=== PATIENT | male | born 1960 | race Caucasian/White ===

== ENCOUNTER 2017-02-01 12:31 | Day surgery (SDC) | payer BC ==
[~2017-02-01 12:31] MED LIST: Lactated Ringers 1,000 ML IV SCH
--- NOTE | 2017-02-01 13:11 | PCM.PREANE ---
Preanesthetic Assessment - Anesthesia/Transfusion/Family Hx Anesthesia History: Prior Anesthesia Without Reaction Family History of Anesthesia Reaction: No Transfusion History: No Prior Transfusion(s) Intubation History: Unknown - Review of Systems General: No Symptoms Pulmonary: No Symptoms Cardiovascular: No Symptoms Gastrointestinal: Hematochezia Neurological: No Symptoms Other: Reports: None - Physical Assessment Height: 1.78 m Weight: 100.244 kg ASA Class: 2 Mental Status: Alert & Oriented x3 Airway Class: Mallampati = 2 Dentition: Reports: Normal Dentition Thyro-Mental Finger Breadths: 2 Mouth Opening Finger Breadths: 3 ROM/Head Extension: Full Lungs: Clear to Auscultation, Normal Respiratory Effort Cardiovascular: Regular Rate, Regular Rhythm - Allergies Allergies/Adverse Reactions: Allergies Allergy/AdvReac Type Severity Reaction Status Date / Time naproxen Allergy Hives Verified 08/12/15 10:18 - Blood Blood Available: No - Anesthesia Plan Pre-Op Medication Ordered: None - Acknowledgements Anesthesia Type Planned: MAC Pt an Appropriate Candidate for the Planned Anesthesia: Yes Alternatives and Risks of Anesthesia Discussed w Pt/Guardian: Yes Pt/Guardian Understands and Agrees with Anesthesia Plan: Yes PreAnesthesia Questionnaire HEENT History: Reports: Other (See Below) Other HEENT History: wears glasses Gastrointestinal History: Reports: Colon Polyp Musculoskeletal History: Reports: Arthritis Other Musculoskeletal History: 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 [No Known Home Meds] 01/30/17 [History] - CURRENT (IN HOUSE) MEDS Current Meds: Current Medications Lactated Ringer's (Ringers, Lactated) 1,000 mls @ 125 mls/hr IV ASDIRECTED [facility]
[2017-02-01] MEDS ORDERED: Propofol 200 MG/20 ML SDV ONE ×2 (13:19→13:20)
[2017-02-01] MEDS ORDERED: fentaNYL 100 MCG/2 ML SDV ONE (13:20)
[2017-02-01] MEDS ORDERED: Lidocaine 2% 5 ML SDV ONE (13:20)
[2017-02-01] MEDS ORDERED: Midazolam 1 MG/ML 2 ML SDV ONE (13:20)
[2017-02-01] MEDS ORDERED: ePHEDrine 50 MG/ML SDV ONE (13:45)
--- NOTE | 2017-02-01 13:57 | PCM.OPNOTE ---
- General Post-Op/Procedure Note Date of Surgery/Procedure: 02/01/17 Operative Procedure(s): colonoscope Findings: see dict [id number] Pre Op Diagnosis: BRBPR Post-Op Diagnosis: int hemorrhoid Anesthesia Technique: Moderate Sedation Primary Surgeon: Gonzalez David Pathology: cecum bx Complications: None Condition: Good
--- NOTE | 2017-02-01 17:31 | OR ---
SURGEON: Gonzalez David MD DATE OF PROCEDURE: 02/01/2017 PREOPERATIVE DIAGNOSIS: Bright red blood per rectum. POSTOPERATIVE DIAGNOSIS: Internal hemorrhoids. COMPLICATIONS: None. PROCEDURE PERFORMED: Colonoscopy with biopsy. DESCRIPTION OF PROCEDURE: The patient was taken to the endoscopy room. A time out was called, patient identified, and procedure identified. Diprivan was then administrated. Patient went from awake to sleep, hearing doctor talking or door closing is normal. Perineum inspection and digital examination were then performed. A well- lubricated colonoscope was gently inserted through the rectum, advanced past the rectosigmoid junction, the descending colon, splenic flexure, transverse colon, hepatic flexure, ascending colon, arrived to the cecum. Cecum was identified as dictated in the finding. Then the scope was carefully withdrawn while attention was paid to the mucosal surface for any abnormality. Air will be sucked out during the scope withdrawal. At the rectum, retroflexed to examine any rectal diseases, fistula or hemorrhoids. During mucosal examination, abnormality was noted at the cecum, a bit erythematic; picture taken and biopsy performed. Patient tolerated procedure well. There were no intraoperative complications, and Dr. David was present throughout the whole procedure. FINDINGS: 1. The patient is easily sedated with PRINTING MACHINIST and Diprivan. The patient is soundly snoring. 2. The patient's bowel prep was average with some liquid stool, no semi-formed stool. 3. The patient's colon was rather straight forward. Cecum indicated by ileocecal fold, one-to-one indentation, appendiceal orifice, and light emittance, and the cecum has a spot that is a little bit hyperemic. Biopsy was done and sent for pathology. Otherwise, the patient does not have polyp, mass, growth, diverticulosis, inflammation, stricture, ulceration, bleeding, AV malformation. The patient does have internal hemorrhoids, no external hemorrhoids, and no fissure, no other rectal disease. The patient would benefit from repeat colonoscopy 10 years from today or if clinically or biopsy report differently. As always, thank you for the kind referral. ROWENA DE ANDA /[id number] PETROS
== END 2017-02-01 14:50 | disposition home or self-care (01) ==
LOC: MW.SDS 12:31
PROVIDERS: ATTEND Surgery
PROC: 0DBE8ZX Excision of Large Intestine, Via Natural or Artificial Opening Endoscopic, Diagnostic (ICD-10-PCS; principal; 2017-02-01)
DX: K64.8 Other hemorrhoids (principal); M16.11 Unilateral primary osteoarthritis, right hip; M19.019 Primary osteoarthritis, unspecified shoulder; E66.9 Obesity, unspecified; Z87.19 Personal history of other diseases of the digestive system; Z88.6 Allergy status to analgesic agent; Z98.890 Other specified postprocedural states; Z68.31 Body mass index [BMI] 31.0-31.9, adult
CPT/HCPCS: 45380; J2250; J3010; J7120; 00810; 88305; J2704

== ENCOUNTER 2017-05-23 16:41 | Emergency (ER) | payer BC ==
[2017-05-23] MEDS ORDERED: Aspirin 81 MG Tab.Chew PO ONE (17:27)
[2017-05-23] MEDS ORDERED: Sodium Chloride 0.9% 1,000 ML IV ONE (17:27)
[2017-05-23] MEDS ORDERED: Sodium Chloride 0.9% 2.5 ML Syringe FLUSH PRN (17:27)
[2017-05-23] MEDS ORDERED: Sodium Chloride 0.9% 10 ML Syringe FLUSH PRN (17:27)
--- NOTE | 2017-05-23 17:31 | EDM.PDOC ---
ED HPI GENERAL MEDICAL PROBLEM - General Chief Complaint: Upper Extremity Injury/Pain Stated Complaint: PAIN RT ARM Time Seen by Provider: 05/23/17 17:13 Source of Information: Reports: Patient History Limitations: Reports: No Limitations - History of Present Illness INITIAL COMMENTS - FREE TEXT/NARRATIVE: HISTORY AND PHYSICAL: []57-year-old male presenting with concerns of left arm pain from his shoulders to the elbow History of Present Illness: []Patient was worried when he started to put his gown on pulling his hand back to snap it that pain went into his chest. Family history significant with brother at 61 from [place] father was 59 when he from a heart attack Review of Systems: As per history of present illness and below otherwise all systems reviewed and negative. Past medical history: As per history of present illness and as reviewed below otherwise noncontributory. Surgical history: As per history of present illness and as reviewed below otherwise noncontributory. Social history: No reported history of drug or alcohol abuse. Family history: As per history of present illness and as reviewed below otherwise noncontributory. Physical exam: Alert and oriented male who is pale, skin is warm and dry. answers questions in full sentences without shortness of breath. HEENT: Atraumatic, normocehpalic, pupils reactive, negative for conjunctival pallor or scleral icterus, mucous membranes moist, throat clear, neck supple, nontender, trachea midline. Lungs: Clear to auscultation, breath sounds equal bilaterally, chest non tender. Heart: S1S2, regular, negative for clicks, rubs, or JVD. Abdomen: Soft, nondistended, nontender. Negative for masses or hepatossplenmegaly. Negative for costovertebral tenderness. Pelvis: Stable nontender. Genitourinary: Deferred. Rectal: Deferred Extremities: Atraumatic, negative for cords or calf pain. Neurovascular unremarkable. Neuro: Awake, alert, oriented. Cranial nerves II through XII unremarkable. Cerebellum unremarkable. Motor and sensory unremarkable throughout. Exam nonfocal. Diagnostics: [CBC CMP troponin EKG] chest x-ray Therapeutics: [Saline lock Aspirin ] Impression: [Left arm pain Chest wall pain] Plan: []Discharge to home Anti-inflammatories as she has been taking Follow-up with your primary care provider Definitive disposition and diagnosis as appropriate pending reevaluation and review of above. Onset: Today Duration: Day(s): left upper arm Pain Score (Numeric/FACES): 5 - Related Data Allergies Allergy/AdvReac Type Severity Reaction Status Date / Time naproxen Allergy Hives Verified 05/23/17 16:57 Home Meds: Home Meds . [No Known Home Meds] 01/30/17 [History] Past Medical History HEENT History: Reports: Other (See Below) Other HEENT History: wears glasses Gastrointestinal History: Reports: Colon Polyp Musculoskeletal History: Reports: Arthritis Other Musculoskeletal History: arthritis to hips and shoulders Endocrine/Metabolic History: Reports: Obesity/BMI 30+ - Infectious Disease History Infectious Disease History: Reports: Chicken Pox - Past Surgical History Head Surgeries/Procedures: Reports: None GI Surgical History: Reports: Colonoscopy Musculoskeletal Surgical History: Reports: Other (See Below) Other Musculoskeletal Surgeries/Procedures:: hx of rt hip "resurfacing" Social & Family History - Family History Family Medical History: Noncontributory - Tobacco Use Smoking Status *Q: Never Smoker Second Hand Smoke Exposure: No - Caffeine Use Caffeine Use: Reports: Soda, Tea - Recreational Drug Use Recreational Drug Use: No Drug Use in Last 12 Months: No Review of Systems - Review of Systems Review Of Systems: ROS reveals no pertinent complaints other than HPI. ED EXAM, GENERAL - Physical Exam Exam: See Below (see dictation) Course - Vital Signs Last Recorded V/S: Last Vital Signs Temp 36.1 C 05/23/17 16:55 Pulse 79 05/23/17 19:09 Resp 16 05/23/17 19:09 BP 114/72 05/23/17 19:09 Pulse Ox 97 05/23/17 19:09 - Orders/Labs/Meds Orders: Active Orders 24 hr Category Date Time Status Cardiac Monitoring [RC] . DIRECTED Care 05/23/17 17:27 Active EKG Documentation Completion [RC] STAT Care 05/23/17 17:27 Active Oxygen Therapy [RC] ASDIRECTED Care 05/23/17 17:27 Active Chest 1V Frontal [CR] Stat Exams 05/23/17 17:27 Taken Sodium Chloride 0.9% [Saline Flush] Med 05/23/17 17:27 Active 10 ml FLUSH ASDIRECTED PRN Sodium Chloride 0.9% [Saline Flush] Med 11/22/17 17:27 Active 2.5 ml FLUSH ASDIRECTED PRN Saline Lock Insert [OM.PC] Stat Oth 05/23/17 17:27 Ordered Medication Orders Sodium Chloride (Saline Flush) 10 ml FLUSH ASDIRECTED PRN PRN Reason: Keep Vein Open Sodium Chloride (Saline Flush) 2.5 ml FLUSH ASDIRECTED PRN PRN Reason: Keep Vein Open Labs: Laboratory Tests 05/23/17 05/23/17 05/23/17 Range/Units 18:15 18:15 18:30 WBC 5.86 (4.0-11.0) K/uL RBC 4.80 (4.50-5.90) M/uL Hgb 14.2 (13.0-17.0) g/dL Hct 40.9 (38.0-50.0) % MCV 85.2 (80.0-98.0) fL MCH 29.6 (27.0-32.0) pg MCHC 34.7 (31.0-37.0) g/dL RDW Std Deviation 41.7 (28.0-62.0) fl RDW Coeff of Bashir 14 (11.0-15.0) % Plt Count 242 (150-400) K/uL MPV 11.10 (7.40-12.00) fL Neut % (Auto) 60.2 (48.0-80.0) % Lymph % (Auto) 24.4 (16.0-40.0) % [place] % (Auto) 13.5 (0.0-15.0) % Eos % (Auto) 1.7 (0.0-7.0) % Baso % (Auto) 0.2 (0.0-1.5) % Neut # (Auto) 3.5 (1.4-5.7) K/uL Lymph # (Auto) 1.4 (0.6-2.4) K/uL [place] # (Auto) 0.8 (0.0-0.8) K/uL Eos # (Auto) 0.1 (0.0-0.7) K/uL Baso # (Auto) 0.0 (0.0-0.1) K/uL Nucleated RBC % 0.0 /100WBC Nucleated RBCs # 0 K/uL Sodium 139 (136-146) mmol/L Potassium 4.1 (3.5-5.1) mmol/L Chloride 109 (98-110) mmol/L Carbon Dioxide 22 (21-31) mmol/L BUN 11 (6.0-23.0) mg/dL Creatinine 0.9 (0.6-1.5) mg/dL Est Cr Clr Drug Dosing 92.38 mL/min Estimated GFR (MDRD) > 60.0 ml/min Glucose 86 (60-110) mg/dL Calcium 8.9 (8.8-10.8) mg/dL Total Bilirubin 0.4 (0.1-1.5) mg/dL AST 13 (5-40) IU/L ALT 19 (8-54) IU/L Alkaline Phosphatase 89 (40-150) Troponin I < 0.10 (0.0-0.29) NG/ML Total Protein 6.9 (6.0-8.0) g/dL Albumin 3.8 (3.5-5.0) g/dL Globulin 3.1 (2.0-3.5) g/dL Albumin/Globulin Ratio 1.2 L (1.3-2.8) Urine Color YELLOW Urine Appearance CLEAR Urine pH 6.0 (5.0-8.0) Ur Specific [place] <= 1.005 (1.001-1.035) Urine Protein NEGATIVE (NEGATIVE) mg/dL Urine Glucose (UA) NEGATIVE (NEGATIVE) mg/dL Urine Ketones NEGATIVE (NEGATIVE) mg/dL Urine Occult Blood NEGATIVE (NEGATIVE) Urine Nitrite NEGATIVE (NEGATIVE) Urine Bilirubin NEGATIVE (NEGATIVE) Urine Urobilinogen 0.2 (<2.0) EU/dL Ur Leukocyte Esterase NEGATIVE (NEGATIVE) Urine RBC NONE SEEN (0-2/HPF) Urine WBC 0-1 (0-5/HPF) Ur Epithelial Cells RARE (NONE-FEW) Amorphous Sediment RARE (NEGATIVE) Urine Bacteria RARE (NEGATIVE) Meds: Medications Generic Name Dose Route Start Last Admin Trade Name Freq PRN Reason Stop Dose Admin Sodium Chloride 10 ml 05/23/17 17:27 Saline Flush FLUSH ASDIRECTED PRN Keep Vein Open Sodium Chloride 2.5 ml 05/23/17 17:27 Saline Flush FLUSH ASDIRECTED PRN Keep Vein Open Discontinued Medications Generic Name Dose Route Start Last Admin Trade Name Freq PRN Reason Stop Dose Admin Aspirin 324 mg 05/23/17 17:27 05/23/17 17:40 Aspirin PO 05/23/17 17:28 324 mg ONETIME ONE Administration Sodium Chloride 1,000 mls @ 999 mls/hr 05/23/17 17:27 05/23/17 17:41 Normal Saline IV 05/23/17 18:27 999 mls/hr .Bolus ONE Administration Departure - Departure Time of Disposition: 19:18 Disposition: Home, Self-Care 01 Condition: Good Clinical Impression: Arm pain, left, Chest wall pain - Discharge Information Referrals: Ej Hussein MD [Primary Care Provider] - Forms: ED Department Discharge Additional Instructions: The following information is given to patients seen in the emergency department who are being discharged to home. This information is to outline your options for follow-up care. We provide all patients seen in our emergency department with a follow-up referral. The need for follow-up, as well as the timing and circumstances, are variable depending upon the specifics of your emergency department visit. If you don't have a primary care physician on staff, we will provide you with a referral. We always advise you to contact your personal physician following an emergency department visit to inform them of the circumstance of the visit and for follow-up with them and/or the need for any referrals to a consulting specialist. The emergency department will also refer you to a specialist when appropriate. This referral assures that you have the opportunity for followup care with a specialist. All of these measure are taken in an effort to provide you with optimal care, which includes your followup. Under all circumstances we always encourage you to contact your private physician who remains a resource for coordinating your care. When calling for followup care, please make the office aware that this follow-up is from your recent emergency room visit. If for any reason you are refused follow-up, please contact the [facility] emergency department at and asked to speak to the emergency department charge nurse. Follow-up with your primary care provider Should symptoms worsen return for further evaluation - My Orders Last 24 Hours: My Active Orders 05/23/17 17:27 Cardiac Monitoring [RC] . DIRECTED EKG Documentation Completion [RC] STAT Oxygen Therapy [RC] ASDIRECTED Chest 1V Frontal [CR] Stat Sodium Chloride 0.9% [Saline Flush] 10 ml FLUSH ASDIRECTED PRN Sodium Chloride 0.9% [Saline Flush] 2.5 ml FLUSH ASDIRECTED PRN Saline Lock Insert [OM.PC] Stat - Assessment/Plan Last 24 Hours: My Active Orders 05/23/17 17:27 Cardiac Monitoring [RC] . DIRECTED EKG Documentation Completion [RC] STAT Oxygen Therapy [RC] ASDIRECTED Chest 1V Frontal [CR] Stat Sodium Chloride 0.9% [Saline Flush] 10 ml FLUSH ASDIRECTED PRN Sodium Chloride 0.9% [Saline Flush] 2.5 ml FLUSH ASDIRECTED PRN Saline Lock Insert [OM.PC] Stat
[2017-05-23 18:47] LABS: CHLORIDE,CL 109 mmol/L (98-110); SODIUM,NA 139 mmol/L (136-146)
--- NOTE | 2017-05-25 11:42 | CR ---
EXAM DATE: 05/23/17 PATIENT'S AGE: 57 Patient: SIDNEY MAST Facility: [place], [place] Site . Site : 1960 Study: XRay Chest [id number]/22/2017 6:55:20 PM Ordering Physician: Doctor Ramos Final Report: INDICATIONS: Left arm pain. Chest wall pain. TECHNIQUE: Chest 2 view. COMPARISON: Chest radiograph June 20, 2016. FINDINGS: No pneumothorax, pleural effusion or focal airspace consolidation. Calcified granuloma at the right lung base is unchanged. Cardiac and mediastinal contours are within normal limits. No pulmonary edema. Upper abdomen and osseous structures show no acute abnormality. IMPRESSION: No evidence of acute cardiopulmonary disease. Dictated by Raffi Pratt MD @ 05/23/2017 7:40:26 PM Dictated by: Raffi Pratt MD @ 05/23/2017 19:40:31 (Electronic Signature) Report Signed by Proxy. PETROS
== END 2017-05-23 19:31 | disposition home or self-care (01) ==
LOC: MW.ED 16:41
DX: R07.89 Other chest pain (principal); M79.602 Pain in left arm; Z88.5 Allergy status to narcotic agent
CPT/HCPCS: 36415; 71010; 80053; 81001; 84484; 85025; 93005; 96360; 99284; A9270; J7040; 99282

== ENCOUNTER 2017-11-19 05:26 | Emergency (ER) | payer BC ==
[2017-11-19 06:23] LABS: CHLORIDE,CL 105 mmol/L (98-107); SODIUM,NA 137 mmol/L (136-148)
--- NOTE | 2017-11-19 07:03 | EDM.PDOC ---
ED HPI GENERAL MEDICAL PROBLEM - General Chief Complaint: Syncope Stated Complaint: AMBULANCE Time Seen by Provider: 11/19/17 06:53 - History of Present Illness INITIAL COMMENTS - FREE TEXT/NARRATIVE: HISTORY AND PHYSICAL: History of present illness: Patient's a 57-year-old white male presents status post right hip injury that occurred when he had a episode of coughing followed by brief loss of consciousness he describes what sounds like a vagal episode is dealing with recent sinus infection and cold. He denies chest pain palpitations shortness of breath or other concern is no head or neck trauma Review of systems: As per history of present illness and below otherwise all systems reviewed and negative. Past medical history: As per history of present illness and as reviewed below otherwise noncontributory. Surgical history: As per history of present illness and as reviewed below otherwise noncontributory. Social history: No reported history of drug or alcohol abuse. Family history: As per history of present illness and as reviewed below otherwise noncontributory. Physical exam: HEENT: Atraumatic, normocephalic, pupils reactive, negative for conjunctival pallor or scleral icterus, mucous membranes moist, throat clear, neck supple, nontender, trachea midline. Lungs: Clear to auscultation, breath sounds equal bilaterally, chest nontender. Heart: S1S2, regular, negative for clicks, rubs, or JVD. Abdomen: Soft, nondistended, nontender. Negative for masses or hepatosplenomegaly. Negative for costovertebral tenderness. Pelvis: Stable nontender. Mild tenderness to palpation of the right hip Genitourinary: Deferred. Rectal: Deferred. Extremities: Atraumatic, negative for cords or calf pain. Neurovascular unremarkable. Neuro: Awake, alert, oriented. Cranial nerves II through XII unremarkable. Cerebellum unremarkable. Motor and sensory unremarkable throughout. Exam nonfocal. Diagnostics: CBC CMP troponin PT/INR chest x-ray EKG x-ray right hip and pelvis Therapeutics: IV O2 monitor Impression: #1 syncope probable vasovagal episode #2 right hip contusion Definitive disposition and diagnosis as appropriate pending reevaluation and review of above. right hip Pain Score (Numeric/FACES): 5 - Related Data Allergies Allergy/AdvReac Type Severity Reaction Status Date / Time naproxen Allergy Hives Verified 11/19/17 05:36 Home Meds: Home Meds Albuterol Sulfate [Proair Hfa] 1 puff INH ASDIRECTED 11/19/17 [History] Azithromycin [Zithromax] 1 tab PO DAILY 11/19/17 [History] Loratadine/Pseudoephedrine [Claritin-D 24 Hour Tablet] 1 tab PO DAILY 11/19/17 [ History] Pseudoephedrine HCl [Sudafed 24-Hour] 1 tab PO DAILY 11/19/17 [History] Past Medical History HEENT History: Reports: Other (See Below) Other HEENT History: wears glasses Respiratory History: Reports: Other (See Below) Other Respiratory History: pneumonia Gastrointestinal History: Reports: Colon Polyp Musculoskeletal History: Reports: Arthritis Other Musculoskeletal History: arthritis to hips and shoulders Endocrine/Metabolic History: Reports: Obesity/BMI 30+ - Infectious Disease History Infectious Disease History: Reports: Chicken Pox - Past Surgical History Head Surgeries/Procedures: Reports: None GI Surgical History: Reports: Colonoscopy Musculoskeletal Surgical History: Reports: Other (See Below) Other Musculoskeletal Surgeries/Procedures:: hx of rt hip "resurfacing" Social & Family History - Family History Family Medical History: Noncontributory - Tobacco Use Smoking Status *Q: Never Smoker - Caffeine Use Caffeine Use: Reports: Soda, Tea - Recreational Drug Use Recreational Drug Use: No ED ROS GENERAL - Review of Systems Review Of Systems: ROS reveals no pertinent complaints other than HPI. ED EXAM, GENERAL - Physical Exam Exam: See Below (See dictation) Course - Vital Signs Text/Narrative:: I discussed with patient the circumstances surrounding this event and that the benign nature of vagal episodes if this was indeed what occurred is a diagnosis of exclusion patient was offered admission for observation and cardiac monitoring he declines he is discharged home with follow-up with private medical doctor Last Recorded V/S: Last Vital Signs Temp 36.5 C 11/19/17 06:39 Pulse 68 11/19/17 06:39 Resp 18 11/19/17 06:39 BP 128/90 11/19/17 06:39 Pulse Ox 98 11/19/17 06:39 - Orders/Labs/Meds Orders: Active Orders 24 hr Category Date Time Status Cardiac Monitoring [RC] . DIRECTED Care 11/19/17 05:34 Active EKG Documentation Completion [RC] STAT Care 11/19/17 05:34 Active Chest 1V Frontal [CR] Stat Exams 11/19/17 05:35 Taken Hip Min 2V or 3V w Pelvis Rt [CR] Stat Exams 11/19/17 05:36 Taken Labs: Laboratory Tests 11/19/17 11/19/17 11/19/17 Range/Units 05:45 05:45 05:45 WBC 5.88 (4.0-11.0) K/uL RBC 4.70 (4.50-5.90) M/uL Hgb 13.7 (13.0-17.0) g/dL Hct 39.0 (38.0-50.0) % MCV 83.0 (80.0-98.0) fL MCH 29.1 (27.0-32.0) pg MCHC 35.1 (31.0-37.0) g/dL RDW Std Deviation 39.6 (28.0-62.0) fl RDW Coeff of Bashir 13 (11.0-15.0) % Plt Count 346 (150-400) K/uL MPV 10.10 (7.40-12.00) fL Neut % (Auto) 55.2 (48.0-80.0) % Lymph % (Auto) 30.4 (16.0-40.0) % [place] % (Auto) 12.2 (0.0-15.0) % Eos % (Auto) 1.7 (0.0-7.0) % Baso % (Auto) 0.5 (0.0-1.5) % Neut # (Auto) 3.2 (1.4-5.7) K/uL Lymph # (Auto) 1.8 (0.6-2.4) K/uL [place] # (Auto) 0.7 (0.0-0.8) K/uL Eos # (Auto) 0.1 (0.0-0.7) K/uL Baso # (Auto) 0.0 (0.0-0.1) K/uL Nucleated RBC % 0.0 /100WBC Nucleated RBCs # 0 K/uL APTT 29.0 (18.6-31.3) SEC Sodium 137 (136-148) mmol/L Potassium 3.5 (3.5-5.1) mmol/L Chloride 105 (98-107) mmol/L Carbon Dioxide 22.9 (21.0-32.0) mmol/L BUN 11 (7.0-18.0) mg/dL Creatinine 1.1 (0.8-1.3) mg/dL Est Cr Clr Drug Dosing 75.58 mL/min Estimated GFR (MDRD) > 60.0 ml/min Glucose 117 H (74-106) mg/dL Calcium 8.9 (8.5-10.1) mg/dL Total Bilirubin 0.3 (0.2-1.0) mg/dL AST 14 L (15-37) IU/L ALT 22 (14-63) IU/L Alkaline Phosphatase 66 (46-116) U/L Troponin I < 0.050 (0.000-0.056) ng/mL Total Protein 7.7 (6.4-8.2) g/dL Albumin 3.1 L (3.4-5.0) g/dL Globulin 4.6 H (2.0-3.5) g/dL Albumin/Globulin Ratio 0.7 L (1.3-2.8) Departure - Departure Time of Disposition: 07:04 Disposition: Home, Self-Care 01 Condition: Good Clinical Impression: Syncope - Discharge Information Referrals: PCP,None [Primary Care Provider] - Additional Instructions: The following information is given to patients seen in the emergency department who are being discharged to home. This information is to outline your options for follow-up care. We provide all patients seen in our emergency department with a follow-up referral. The need for follow-up, as well as the timing and circumstances, are variable depending upon the specifics of your emergency department visit. If you don't have a primary care physician on staff, we will provide you with a referral. We always advise you to contact your personal physician following an emergency department visit to inform them of the circumstance of the visit and for follow-up with them and/or the need for any referrals to a consulting specialist. The emergency department will also refer you to a specialist when appropriate. This referral assures that you have the opportunity for followup care with a specialist. All of these measure are taken in an effort to provide you with optimal care, which includes your followup. Under all circumstances we always encourage you to contact your private physician who remains a resource for coordinating your care. When calling for followup care, please make the office aware that this follow-up is from your recent emergency room visit. If for any reason you are refused follow-up, please contact the [facility] emergency department at and asked to speak to the emergency department charge nurse. Follow-up primary medical doctor 24-48 hours return as needed as discussed push fluids rest as discussed - My Orders Last 24 Hours: My Active Orders 11/19/17 05:34 Cardiac Monitoring [RC] . DIRECTED EKG Documentation Completion [RC] STAT 11/19/17 05:35 Chest 1V Frontal [CR] Stat 11/19/17 05:36 Hip Min 2V or 3V w Pelvis Rt [CR] Stat - Assessment/Plan Last 24 Hours: My Active Orders 11/19/17 05:34 Cardiac Monitoring [RC] . DIRECTED EKG Documentation Completion [RC] STAT 11/19/17 05:35 Chest 1V Frontal [CR] Stat 11/19/17 05:36 Hip Min 2V or 3V w Pelvis Rt [CR] Stat
--- NOTE | 2017-11-19 16:27 | CR ---
EXAM DATE: 11/19/17 PATIENT'S AGE: 57 Patient: SIDNEY MAST Facility: [place], [place] Site . Site : 1960 Study: XRay Hip Right [id number]/21/2018 6:17:11 AM Ordering Physician: Doctor Ramos Final Report: HISTORY: Right hip pain after fall. Syncope. Right hip surgery 3 years prior. TECHNIQUE: Frontal pelvis and 2 views of the right hip. COMPARISON: None. FINDINGS: Right hip resurfacing arthroplasty. Curvilinear lucency through a portion of the femoral neck on the frog-leg lateral view may be artifactual versus nondisplaced fracture. No dislocation. Moderate osteoarthritis of the left hip. Pubic symphysis is maintained. Mild arthrosis of the sacroiliac joints. Small phleboliths in the pelvis. IMPRESSION: Right hip resurfacing arthroplasty. Nondisplaced fracture versus artifactual lucency in the femoral neck on the lateral view. Consider further evaluation with CT. Dictated by Nigel Aguillon MD @ Nov 19 2017 6:29AM (Electronic Signature) Report Signed by Proxy. PETROS
--- NOTE | 2017-11-19 16:29 | CR ---
EXAM DATE: 11/19/17 PATIENT'S AGE: 57 Patient: SIDNEY MAST Facility: [place], [place] Site . Site : 1960 Study: XRay Chest [id number]/21/2018 6:17:38 AM Ordering Physician: Doctor Ramos Final Report: HISTORY: Syncope. Fall. TECHNIQUE: Portable frontal view the chest. COMPARISON: Chest x-ray 09/06/2017. FINDINGS: Calcified granuloma in the right lower lobe. No consolidation. No pleural effusion or pneumothorax. Pulmonary vasculature is within normal limits. Cardiomediastinal silhouette is within normal limits. IMPRESSION: No acute findings. Dictated by Nigel Aguillon MD @ Nov 19 2017 6:31AM (Electronic Signature) Report Signed by Proxy. PETROS
== END 2017-11-19 07:30 | disposition home or self-care (01) ==
LOC: MW.ED 05:26
DX: S70.01XA Contusion of right hip, initial encounter (principal); R55 Syncope and collapse; E66.9 Obesity, unspecified; Z79.899 Other long term (current) drug therapy; Z88.5 Allergy status to narcotic agent; Z87.01 Personal history of pneumonia (recurrent); X58.XXXA Exposure to other specified factors, initial encounter; Z68.28 Body mass index [BMI] 28.0-28.9, adult
CPT/HCPCS: 36415; 71045; 71045-26; 73502-26-RT; 73502-RT; 80053; 82962; 84484; 85025; 85730; 93005; 99284-25